=== PATIENT | female | born 1985 | race Asian ===

== ENCOUNTER 2019-01-30 22:28 | Emergency (ER) | payer OTHER, SELFPAY ==
[2019-01-30 22:39] VITALS: BP 136/87; PULSE 78; RESP 18; TEMP 36.5; O2SAT 99
--- NOTE | 2019-01-30 22:40 | ED_ITS ---
HPI - Eye Problem General Chief complaint: Eye Problems Stated complaint: something in eye Time Seen by Provider: 01/30/19 22:38 Source: patient Mode of arrival: Ambulatory Limitations: no limitations History of Present Illness HPI Narrative: 33-year-old female nonsmoker with benign medical history, active duty presents with a chief complaint of a splash of an unknown chemical in her eye. She immediately flushed with copious amounts of water. She has no symptoms. She denies any burning, tearing or change in vision. She is otherwise well and free of complaint. She does not wear contacts. Her tetanus is current MD chief complaint: eye injury Onset (ago): hour(s) Onset description: sudden Duration: improved Location: right eye Eye Symptoms: other Place: work Mechanism: chemical exposure Severity: mild Associated symptoms: none Treatments Prior to Arrival: irrigated eye Related Data Patient tetanus UTD: Yes Previous Rx's Medication Instructions Recorded trazodone 50 mg tablet 50 mg PO BEDTIME PRN #30 tab 01/05/19 Allergies Allergy/AdvReac Type Severity Reaction Status Date / Time No Known Drug Allergies Allergy Unverified 11/29/18 14:47 Review of Systems Constitutional Constitutional: Denies chills, Denies fatigue, Denies fever(s), Denies frequent falls, Denies lethargy and Denies weakness Eyes Eyes: Denies change in vision, Denies eye discharge, Denies irritation, Denies loss of vision and Reports other ENT Ears, Nose, Mouth, and Throat: Denies change in voice, Denies dizziness, Denies neck pain, Denies sore throat and Denies throat swelling Cardiovascular Cardiovascular: Denies chest pain, Denies irregular heart rhythm, Denies lightheadedness, Denies palpitations, Denies dyspnea, Denies dyspnea on exertion and Denies orthopnea Respiratory Respiratory: Denies cough, Denies dyspnea, Denies dyspnea on exertion and Denies wheezing Gastrointestinal Gastrointestinal: Denies abdominal pain, Denies change in bowel habits, Denies diarrhea, Denies nausea and Denies vomiting Genitourinary Genitourinary: Denies hematuria, Denies flank pain, Denies urinary incontinence and Denies urinary urgency Musculoskeletal Musculoskeletal: Denies back pain, Denies muscle weakness, Denies neck pain, Denies numbness and Denies tingling Integumentary/Breasts Skin/Breast: Denies pruritus, Denies erythema, Denies rash and Denies wounds Neurologic Neurologic: Denies behavioral changes, Denies confusion, Denies dizziness, Denies frequent falls, Denies loss of vision, Denies numbness, Denies tingling and Denies weakness Psychiatric Psychiatric: Denies anxiety, Denies behavioral changes, Denies confusion, Denies depression, Denies homicidal ideation and Denies suicidal ideation Endocrine Endocrine: Denies fatigue, Denies flushing and Denies palpitations Hematologic/Lymphatic Hematologic/Lymphatic: Denies easy bruising Allergic/Immunologic Allergic/Immunologic: Denies urticaria, Denies throat swelling and Denies wheezing Patient History Social History Smoking Status: Former smoker Exam Narrative Exam Narrative: GEN: AOx3 and in mild distress EYES: Pupils are equal, round, and reactive to light and accommodation. Extraoccular muscles are intact bilaterally. There is no subconjunctival hemorrhage or exudate. Visual acuity unaffected, see nurse's note. PH 7.0. No fluorescein uptake when visualized under UV lamp CHEST: Lungs are clear to auscultation bilaterally and free of wheezes, rales, or rhonchi. Heart rate is regular rhythm, there are no murmurs, clicks, rubs, or gallops. There is no chest wall tenderness. ABD: Abdomen is soft and nontender. There is no guarding or rebound. Bowel sounds are normal in all 4 quadrants. There is no mass or organomegaly. EXT: Full painless ROM of all extremities with no loss of sensation or strength. SKIN: Warm, pink, and dry. No erythema or rash Initial Vital Signs Initial Vital Signs: Vital Signs Temperature 97.7 F 01/30/19 22:39 Pulse Rate 78 01/30/19 22:39 Respiratory Rate 18 01/30/19 22:39 Blood Pressure 136/87 01/30/19 22:39 Pulse Oximetry 99 01/30/19 22:39 Course Orders Ordered: Discontinued Medications Proparacaine HCl (Parcaine 0.5% Ophth Марина) 1 drops EYE-BOTH NOW ONE Stop: 01/30/19 22:41 Last Admin: 01/30/19 22:56 Dose: 1 bottle Documented by: MMCFARL Sulfacetamide (Bleph-10 Prepack) 1 bottle MISC SEEINSTR ONE Stop: 01/30/19 23:37 Last Admin: 01/30/19 23:59 Dose: 1 bottle Documented by: CARMELITA Vital Signs Vital signs: Vital Signs - 8 hr 01/30/19 23:46 Temperature 97.4 F L Pulse Rate 67 Respiratory Rate 16 Blood Pressure [Left Arm] 119/77 Pulse Oximetry 98 Discharge Plan Departure Patient Disposition: Home Clinical Impression: Acute chemical conjunctivitis Qualifiers: Laterality: right Qualified Code(s): H10.211 - Acute toxic conjunctivitis, right eye Discharge Date/Time: 01/31/19 00:02 Instructions: DI for Chemical Eye Burn Activity Restrictions/Additional Instructions: *You have been diagnosed with [acute chemical conjunctivitis right eye] *What to do: *Take medications as directed *[place] call for an appointment. Let them know you were seen in the Emergency Department and that we ask that you be seen in follow up. I have also given you contact information for our transmission assembler in the event they want you to follow up with an eye doctor *Return to ER if you should have any new, worsening or concerning symptoms] Prescriptions: No Action trazodone 50 mg tablet 50 mg PO BEDTIME PRN (Reason: insomnia) Qty: 30 RF: 0 Referrals: [facility] [Outside] Sean Elizabeth MD [Physician] -
[2019-01-30] MEDS: PROPARACAINE 0.5% OPHTH SOL 1 DROPS EYE-BOTH (22:56)
[2019-01-30 23:46] VITALS: BP 119/77; PULSE 67; RESP 16; TEMP 36.3; O2SAT 98
[2019-01-30] MEDS: SULFACETAMIDE 10% OPHTH PREPACK 1 BOTTLE MISC (23:59)
== END 2019-01-31 00:02 | disposition home or self-care (01) ==
PROVIDERS: Emergency Provider Emergency Medicine
DX: H10.211 Acute toxic conjunctivitis, right eye (principal)
CPT/HCPCS: 99283